=== PATIENT | female | born 1995 | race Caucasian/White ===

== ENCOUNTER 2022-02-11 20:27 | Emergency (ER) | payer MEDICAID ==
[~2022-02-11] VITALS: Ht 170.2 cm; Wt 136.0 kg
[2022-02-11 21:11] VITALS: BP 124/79
[2022-02-11 21:49] LABS: URINE BILIRUBIN - DIPSTICK NEGATIVE (NEGATIVE); URINE BLOOD DIPSTICK LARGE (NEGATIVE); URINE COLOR YELLOW; URINE GLUCOSE - DIPSTICK NEGATIVE (NEGATIVE); URINE KETONE NEGATIVE (NEGATIVE); URINE LEUK ESTERASE SMALL (NEGATIVE); URINE NITRITE - DIPSTICK POSITIVE (Negative); URINE PROTEIN - DIPSTICK 100 mg/dL (NEG-TRACE); URINE SPECIFIC GRAVITY >=1.030; URINE UROBILINOGEN - DIPSTICK 0.2 E.U./dL (0.2)
[2022-02-11 21:54] LABS: URINE BACTERIA MANY hpf; URINE SQUAMOUS EPITHELIAL CELL FEW EPI/hpf (0-FEW); URINE WBC 50-100 WBC/hpf (0-5)
[2022-02-11 22:15] LABS: HEMATOCRIT 38.1 % (37.0-47.0); HEMOGLOBIN 12.8 g/dl (12.0-16.0); IMMATURE GRANULOCYTES 0.2 % (0.0-5.0); MEAN CELL VOLUME 90.3 fL CALC (80.0-100.0); MEAN CORPUSCULAR HGB 30.3 pG CALC (26.0-32.0); MEAN CORPUSCULAR HGB CONC 33.6 g/dL CAL (32.0-36.0); NEUT# 10.03 thou/uL (2.00-7.15); RED BLOOD COUNT 4.22 mill/uL (4.20-5.60); RED CELL DISTRI WIDTH 11.7 % (11.5-15.5)
[2022-02-11 22:19] LABS: ALBUMIN 4.1 g/dL (3.2-5.0); ALKALINE PHOSPHATASE 86 u/l (38-126); ANION GAP 17 (6-22 (CALC)); BILIRUBIN, TOTAL 0.4 mg/dL (0.0-1.4); BUN 10 mg/dL (7-17); BUN/CREATININE RATIO 11 (12-20 (CALC)); CARBON DIOXIDE 23 mmol/l (22-30); CHLORIDE 103 mmol/l (95-108); CREATININE 0.9 mg/dL (0.5-1.0); GFR FOR AFR.AMER. > 60 ML/MIN (>=60 (CALC)); GFR OTHER RACES > 60 ML/MIN (>=60 (CALC)); SGOT/AST 21 u/l (14-36); SODIUM 139 mmol/l (137-146); TOTAL PROTEIN 7.4 g/dL (6.3-8.2)
[2022-02-11] MEDS ORDERED: KEFLEX500 MG PO (23:44)
[2022-02-11] MEDS ORDERED: PYRIDIUM200 MG PO (23:44)
[2022-02-12 01:26] VITALS: BP 138/89
[2022-02-12 01:30] VITALS: BP 111/75
[2022-02-12 02:00] VITALS: BP 108/80
== END 2022-02-12 01:28 | disposition home or self-care (01) ==
LOC: ED 20:27
PROVIDERS: Emergency Medicine
DX: N39.0 Urinary tract infection, site not specified (principal); B96.20 Unspecified Escherichia coli [E. coli] as the cause of diseases classified elsewhere
CPT/HCPCS: Q9967

== ENCOUNTER 2022-04-16 20:14 | Emergency (ER) | payer MEDICAID ==
[~2022-04-16] VITALS: Ht 170.2 cm; Wt 150.0 kg
[~2022-04-16 20:14] MED LIST: KEFLEX500 MG PO; PYRIDIUM200 MG PO
[2022-04-16 22:06] LABS: HEMATOCRIT 34.7 % (37.0-47.0); HEMOGLOBIN 11.9 g/dl (12.0-16.0); IMMATURE GRANULOCYTES 0.3 % (0.0-5.0); MEAN CELL VOLUME 88.1 fL CALC (80.0-100.0); MEAN CORPUSCULAR HGB 30.2 pG CALC (26.0-32.0); MEAN CORPUSCULAR HGB CONC 34.3 g/dL CAL (32.0-36.0); NEUT# 2.03 thou/uL (2.00-7.15); RED BLOOD COUNT 3.94 mill/uL (4.20-5.60); RED CELL DISTRI WIDTH 12.9 % (11.5-15.5)
[2022-04-16 22:16] LABS: ALBUMIN 3.7 g/dL (3.2-5.0); ALKALINE PHOSPHATASE 103 u/l (38-126); ANION GAP 12 (6-22 (CALC)); BUN 10 mg/dL (7-17); BUN/CREATININE RATIO 9 (12-20 (CALC)); CARBON DIOXIDE 24 mmol/l (22-30); CHLORIDE 105 mmol/l (95-108); CREATININE 1.1 mg/dL (0.5-1.0); GFR FOR AFR.AMER. > 60 ML/MIN (>=60 (CALC)); GFR OTHER RACES > 60 ML/MIN (>=60 (CALC)); LIPASE 51 u/l (23-300); POTASSIUM 3.9 mmol/l (3.5-5.1); SODIUM 137 mmol/l (137-146); TOTAL PROTEIN 7.6 g/dL (6.3-8.2)
[2022-04-16 22:40] LABS: BILIRUBIN, TOTAL 0.8 mg/dL (0.0-1.4); SGOT/AST 62 u/l (14-36)
[2022-04-16 23:30] VITALS: BP 147/78
[2022-04-16 23:31] LABS: URINE BILIRUBIN - DIPSTICK NEGATIVE (NEGATIVE); URINE COLOR YELLOW; URINE GLUCOSE - DIPSTICK NEGATIVE (NEGATIVE); URINE KETONE NEGATIVE (NEGATIVE); URINE LEUK ESTERASE TRACE (NEGATIVE); URINE PH 5.5 (4.5-8.0); URINE PROTEIN - DIPSTICK NEGATIVE (NEG-TRACE); URINE SPECIFIC GRAVITY >=1.030
[2022-04-16 23:32] LABS: URINE BLOOD DIPSTICK NEGATIVE (NEGATIVE); URINE NITRITE - DIPSTICK NEGATIVE (Negative)
[2022-04-16 23:39] LABS: URINE BACTERIA MODERATE hpf; URINE SQUAMOUS EPITHELIAL CELL FEW EPI/hpf (0-FEW)
[2022-04-16 23:45] VITALS: BP 139/84
[2022-04-17 00:01] VITALS: BP 112/68
[2022-04-17 00:16] VITALS: BP 154/67
[2022-04-17] MEDS ORDERED: PROMETHAZINE HY25 M1 PO (00:24)
[2022-04-17 00:35] VITALS: BP 154/67
== END 2022-04-17 00:48 | disposition home or self-care (01) ==
LOC: ED 20:14
PROVIDERS: Family Medicine
DX: K52.9 Noninfective gastroenteritis and colitis, unspecified (principal); Z20.822 Contact with and (suspected) exposure to COVID-19

== ENCOUNTER 2022-04-28 10:11 | Emergency (ER) | payer MEDICAID ==
[~2022-04-28] VITALS: Ht 170.2 cm; Wt 104.5 kg
[2022-04-28] VITALS (8 sets, daily range): BP systolic 94–135; BP diastolic 43–78
[~2022-04-28 10:11] MED LIST changes: +PROMETHAZINE HY25 M1 PO
[2022-04-28 10:50] LABS: BASO% 0.3 % (0-3); EOS% 2.3 % (0-8); HEMATOCRIT 32.3 % (37.0-47.0); HEMOGLOBIN 10.9 g/dl (12.0-16.0); IMMATURE GRANULOCYTES 0.3 % (0.0-5.0); LYMPH% 60.4 % (15-41); MEAN CELL VOLUME 91.8 fL CALC (80.0-100.0); MEAN CORPUSCULAR HGB CONC 33.7 g/dL CAL (32.0-36.0); MONO% 6.6 % (2-13); NEUT# 2.24 thou/uL (2.00-7.15); NEUT% 30.1 % (42-76); RED BLOOD COUNT 3.52 mill/uL (4.20-5.60); RED CELL DISTRI WIDTH 14.4 % (11.5-15.5)
[2022-04-28 10:59] LABS: ALBUMIN 3.6 g/dL (3.2-5.0); ALKALINE PHOSPHATASE 92 u/l (38-126); ANION GAP 9 (6-22 (CALC)); BILIRUBIN, TOTAL 0.5 mg/dL (0.0-1.4); BUN 8 mg/dL (7-17); BUN/CREATININE RATIO 9 (12-20 (CALC)); CHLORIDE 105 mmol/l (95-108); CREATININE 0.9 mg/dL (0.5-1.0); GFR FOR AFR.AMER. > 60 ML/MIN (>=60 (CALC)); GFR OTHER RACES > 60 ML/MIN (>=60 (CALC)); POTASSIUM 4.2 mmol/l (3.5-5.1); SGOT/AST 47 u/l (14-36); SODIUM 140 mmol/l (137-146); TOTAL PROTEIN 7.4 g/dL (6.3-8.2)
[2022-04-28 11:01] LABS: CARBON DIOXIDE 30 mmol/l (22-30)
[2022-04-28] MEDS ORDERED: ZOFRAN4 MG/TAB PO (12:17)
== END 2022-04-28 12:31 | disposition home or self-care (01) ==
LOC: ED 10:11
PROVIDERS: Family Medicine
DX: J06.9 Acute upper respiratory infection, unspecified (principal); R10.9 Unspecified abdominal pain; Z20.822 Contact with and (suspected) exposure to COVID-19; R07.9 Chest pain, unspecified

== ENCOUNTER 2022-06-21 08:20 | Emergency (ER) | payer MEDICAID ==
[~2022-06-21] VITALS: Ht 172.7 cm; Wt 100.0 kg
[2022-06-21] VITALS (7 sets, daily range): BP systolic 95–126; BP diastolic 67–89
[~2022-06-21 08:20] MED LIST changes: +ZOFRAN4 MG/TAB PO
[2022-06-21] MEDS ORDERED: PAXLOVID PO (09:37)
[2022-06-22] MEDS ORDERED: PROMETHAZINE HY25 M1 PO (01:23)
== END 2022-06-21 09:56 | disposition home or self-care (01) ==
LOC: ED 08:20
DX: U07.1 COVID-19 (principal); R50.9 Fever, unspecified; J02.9 Acute pharyngitis, unspecified; R05.9 Cough, unspecified; R06.02 Shortness of breath; M79.10 Myalgia, unspecified site

== ENCOUNTER 2022-06-21 22:10 | Emergency (ER) | payer MEDICAID ==
[~2022-06-21] VITALS: Ht 172.7 cm; Wt 280.0 kg
[~2022-06-21 22:10] MED LIST changes: +PAXLOVID PO
[2022-06-21 23:04] VITALS: BP 126/74
[2022-06-21 23:16] VITALS: BP 130/54
[2022-06-21 23:20] LABS: BASO% 0.2 % (0-3); IMMATURE GRANULOCYTES 0.1 % (0.0-5.0); LYMPH% 23.4 % (15-41); MEAN CORPUSCULAR HGB 29.5 pG CALC (26.0-32.0); MEAN CORPUSCULAR HGB CONC 34.7 g/dL CAL (32.0-36.0); NEUT# 6.81 thou/uL (2.00-7.15); NEUT% 70.3 % (42-76); RED BLOOD COUNT 4.91 mill/uL (4.20-5.60); RED CELL DISTRI WIDTH 12.4 % (11.5-15.5)
[2022-06-21 23:30] LABS: ALKALINE PHOSPHATASE 66 u/l (38-126); BILIRUBIN, TOTAL 0.5 mg/dL (0.02-1.3); BUN 11 mg/dL (7-17); BUN/CREATININE RATIO 12 (12-20 (CALC)); CHLORIDE 105 mmol/l (95-108); CREATININE 0.9 mg/dL (0.5-1.0); GFR FOR AFR.AMER. > 60 ML/MIN (>=60 (CALC)); GFR OTHER RACES > 60 ML/MIN (>=60 (CALC)); LIPASE 67 u/l (23-300); POTASSIUM 3.4 mmol/l (3.5-5.1); SGOT/AST 31 u/l (14-36); SODIUM 136 mmol/l (137-146)
[2022-06-21 23:31] VITALS: BP 130/65
[2022-06-22 00:19] LABS: HEMATOCRIT 41.8 % (37.0-47.0); HEMOGLOBIN 14.5 g/dl (12.0-16.0); MEAN CELL VOLUME 85.1 fL CALC (80.0-100.0)
[2022-06-22 00:20] LABS: ALBUMIN 4.9 g/dL (3.2-5.0); ANION GAP 14 (6-22 (CALC)); CARBON DIOXIDE 20 mmol/l (22-30); TOTAL PROTEIN 8.9 g/dL (6.3-8.2)
[2022-06-22] MEDS ORDERED: PROMETHAZINE HY25 M1 PO (01:23)
[2022-06-22 01:28] VITALS: BP 130/54
== END 2022-06-22 01:35 | disposition home or self-care (01) ==
LOC: ED 22:10
PROVIDERS: Family Medicine
DX: R11.10 Vomiting, unspecified (principal); T37.5X5A Adverse effect of antiviral drugs, initial encounter; U07.1 COVID-19

== ENCOUNTER 2022-07-10 22:13 | Observation (INO) | payer MEDICAID ==
[~2022-07-10] VITALS: Ht 172.7 cm; Wt 131.6 kg
[2022-07-10 22:33] VITALS: BP 135/111
[2022-07-10 22:45] VITALS: BP 135/80
[2022-07-10 22:52] LABS: BASO% 0.3 % (0-3); EOS% 5.9 % (0-8); HEMATOCRIT 37.6 % (37.0-47.0); HEMOGLOBIN 13.1 g/dl (12.0-16.0); LYMPH% 33.2 % (15-41); MEAN CELL VOLUME 85.3 fL CALC (80.0-100.0); MEAN CORPUSCULAR HGB 29.7 pG CALC (26.0-32.0); MEAN CORPUSCULAR HGB CONC 34.8 g/dL CAL (32.0-36.0); MONO% 7.5 % (2-13); NEUT# 4.05 thou/uL (2.00-7.15); NEUT% 53.1 % (42-76); RED BLOOD COUNT 4.41 mill/uL (4.20-5.60)
[2022-07-10 23:00] VITALS: BP 136/84
[2022-07-10 23:08] LABS: ALBUMIN 4.1 g/dL (3.2-5.0); ALKALINE PHOSPHATASE 72 u/l (38-126); ANION GAP 11 (6-22 (CALC)); BILIRUBIN, TOTAL 0.4 mg/dL (0.02-1.3); BUN 14 mg/dL (7-17); BUN/CREATININE RATIO 15 (12-20 (CALC)); CARBON DIOXIDE 23 mmol/l (22-30); CHLORIDE 109 mmol/l (95-108); CREATININE 0.9 mg/dL (0.5-1.0); GFR FOR AFR.AMER. > 60 ML/MIN (>=60 (CALC)); GFR OTHER RACES > 60 ML/MIN (>=60 (CALC)); POTASSIUM 4.1 mmol/l (3.5-5.1); SGOT/AST 32 u/l (14-36); SODIUM 139 mmol/l (137-146); TOTAL PROTEIN 7.8 g/dL (6.3-8.2)
[2022-07-10 23:15] VITALS: BP 122/93
[2022-07-10 23:30] VITALS: BP 129/86
[2022-07-10 23:46] VITALS: BP 125/79
[2022-07-11] VITALS (21 sets, daily range): BP systolic 113–145; BP diastolic 63–89
[2022-07-11] MEDS ORDERED: PREDNISONE50 MG PO (11:41)
[2022-07-11] MEDS ORDERED: ADVAIR DISK1 IN (11:42)
== END 2022-07-11 13:49 | disposition home or self-care (01) ==
LOC: ED 22:13 → ED-I 23:50 → ED 07-11 01:13 → ED-I 07-11 01:14 → MS2 07-11 07:03
PROVIDERS: Emergency Medicine; ADMIT Internal Medicine; ATTEND Internal Medicine
DX: J45.901 Unspecified asthma with (acute) exacerbation (principal); R09.02 Hypoxemia; Z20.822 Contact with and (suspected) exposure to COVID-19; Z86.16 Personal history of COVID-19; F17.290 Nicotine dependence, other tobacco product, uncomplicated
CPT/HCPCS: G0378

== ENCOUNTER 2024-05-23 19:55 | Emergency (ER) | payer OTHER ==
[~2024-05-23] VITALS: Ht 172.7 cm; Wt 90.0 kg
[~2024-05-23 19:55] MED LIST changes: +ADVAIR DISK1 IN; +AMOX/K CLAV875 M1 PO; +IPRATROPIU0.5 MG/3 M IN; +PREDNISONE50 MG PO; +VENTOLIN HFA108 MCG PO
[2024-05-23 20:53] LABS: URINE BILIRUBIN - DIPSTICK Negative (NEGATIVE); URINE BLOOD DIPSTICK Trace-lysed (NEGATIVE); URINE COLOR Yellow; URINE GLUCOSE - DIPSTICK Negative (NEGATIVE); URINE KETONE Negative (NEGATIVE); URINE LEUK ESTERASE Trace (NEGATIVE); URINE NITRITE - DIPSTICK Negative (Negative); URINE PH 5.5 (4.5-8.0); URINE PROTEIN - DIPSTICK 30 mg/dL (NEG-TRACE); URINE SPECIFIC GRAVITY >=1.030; URINE UROBILINOGEN - DIPSTICK 0.2 E.U./dL (0.2)
[2024-05-23 20:59] LABS: URINE RBC 0-2 RBC/hpf (0-5); URINE SQUAMOUS EPITHELIAL CELL MANY EPI/hpf (0-FEW); URINE TRANSITIONAL EPI. CELLS MANY hpf
[2024-05-23 21:01] LABS: URINE BACTERIA MODERATE hpf; URINE WBC 20-50 WBC/hpf (0-5)
[2024-05-23] MEDS ORDERED: PYRIDIUM200 MG PO ×2 (21:49→22:16)
[2024-05-23] MEDS ORDERED: BACTRIM DS1 TAB PO ×2 (21:49→22:16)
[2024-05-23] MEDS ORDERED: SULFAMETHOXAZOLE W/TRIMETHOPRI 1 COMBO TAB PO ONE (21:50)
[2024-05-23] MEDS ORDERED: PHENAZOPYRIDINE HCL 100 MG/TAB PO ONE (21:50)
[2024-05-23 22:15] VITALS: BP 123/71
== END 2024-05-23 22:15 | disposition home or self-care (01) | DRG 690 ==
LOC: ED 19:55
PROVIDERS: Nurse Practitioner
DX: N39.0 Urinary tract infection, site not specified (principal); J45.909 Unspecified asthma, uncomplicated